=== PATIENT | male | born 1990 | race Caucasian/White ===

== ENCOUNTER 2025-06-04 17:36 | Emergency (ER) | payer OTHER ==
[~2025-06-04] VITALS: Ht 185.4 cm; Wt 62.9 kg
[2025-06-04 19:22] VITALS: TEMP 97.2
[2025-06-04] MEDS ORDERED: NO HOME MEDS (19:27)
[2025-06-04 19:47] LABS: MEAN PLATELET VOLUME 6.7 FL (7.4-10.4); RED CELL DISTRIBUTION WIDTH 13.5 % (11.5-14.5)
[2025-06-04 20:00] LABS: CREATININE 0.76 MG/DL (0.60-1.10); TOTAL CARBON DIOXIDE 34.0 MMOL/L (24-32); eCRCL 122 ML/MIN; eGFR > 90 ML/MIN
[2025-06-04 20:26] LABS: URINE AMPHETAMINE SCREEN NEGATIVE (Neg); URINE BARBITUATE SCREEN NEGATIVE (Neg); URINE BENZODIAZEPINES SCREEN NEGATIVE (Neg); URINE CANNABINOID SCREEN NEGATIVE (Neg); URINE COCAINE SCREEN NEGATIVE (Neg); URINE METHADONE SCREEN NEGATIVE (Neg); URINE OPIATE SCREEN NEGATIVE (Neg); URINE PHENCYCLIDINE SCREEN NEGATIVE (Neg)
[2025-06-04] MEDS ORDERED: HYDR-3686 PO (20:44)
--- NOTE | 2025-06-04 20:45 | Physician Documentation ---
History of Present Illness ~ Chief Complaint: Dizziness Stated Complaint: MED REACTION Time Seen by MD: 18:34 Mode of Arrival: POV HPI 35-year-old male [facility]. He has been taking paroxetine for greater than month and a half and drinking a pt of alcohol a day. Reports a lot of anxiety symptoms that he feels are related to paroxetine. [facility] who [facility] been [facility]ing dose of the SSRI. Patient continues to drink alcohol. Brought in the emergency department by mom. Also reports he has been using create him. He is alert and oriented. He has had some unintentional weight loss. Has had prior episodes of excessive drinking yet without withdrawal. Otherwise grossly neurologically intact without focal neuro defici ts. Medication Reconciliation Allergies: Coded Allergies: No Known Allergies (Unverified , 06/04/25) Scheduled Hydroxyzine Hcl* (Atarax*), 1 TAB PO Q8H Miscellaneous Medications Home Med List (No Home Medications), (Reported) Review of Systems All Other Systems at this time: Reviewed and Negative Neurological: Reports: dizziness Psychiatric: Reports: depression, anxiety, sleeplessness; Denies: suicidal Physical Exam Vital Signs: RN Vital Signs have been reviewed: Yes, Temperature: 97.2, Source: Oral, Heart Rate: 114, Respiratory Rate: 16, BP: 156/111, Pulse Oximetry: 99, Weight: 62.900 Oxygen Flow Rate: 0 General Appearance: alert, WD/WN, mild distress, other (Anxious) Head: normal Pupils/EOM/Fundus: PERRLA Respiratory: lungs clear, normal breath sounds Chest: no accessory muscle use Cardiovascular: normal peripheral pulses Skin: warm/dry Orientation / Memory / CN: oriented x3, information technology intern II-XII deficit Motor / Sensory: no motor deficit, no sensory deficit Cerebellar Function: normal Psych: appropriate, anxious Progress Results/Orders Results/Orders Completed Orders - YAYO DSOUZA Drug Screen, Urine (06/04/25 19:22) CMP (06/04/25 19:22) Cbc/Diff (06/04/25 19:22) Hydroxyzine Tablet (Atarax Tablet) (06/04/25 19:25) Vital Signs 06/04/25 06/04/25 06/04/25 06/04/25 17:41 19:22 19:23 20:52 Temp 97.2 97.2 Pulse 110 114 105 Resp 16 18 16 16 B/P (MAP) 162/111 156/111 (126) 140/102 Pulse Ox 100 99 100 O2 Flow Rate 0 0 Laboratory Tests Test 06/04/25 19:38 06/04/25 20:02 White Blood Count 4.4 L Red Blood Count 5.01 Hemoglobin 16.3 Hematocrit 47.3 Mean Corpuscular Volume 94.5 Mean Corpuscular Hemoglobin 32.6 H Mean Corpuscular Hemoglobin Concent 34.5 Red Cell Distribution Width 13.5 Platelet Count 164 Mean Platelet Volume 6.7 L Neutrophils (%) (Auto) 51.9 Lymphocytes (%) (Auto) 38.4 Monocytes (%) (Auto) 8.2 Eosinophils (%) (Auto) 0.5 Basophils (%) (Auto) 1.0 Neutrophils # (Auto) 2.3 Lymphocytes # (Auto) 1.7 Monocytes # (Auto) 0.4 Eosinophils # (Auto) 0.0 Basophils # (Auto) 0.0 CBC Comment Sodium Level 143 Potassium Level 4.7 Chloride Level 101 Carbon Dioxide Level 34.0 H Anion Gap 8 Blood Urea Nitrogen 8 Creatinine 0.76 Estimated GFR/1.73 m2 > 90 BUN/Creatinine Ratio 10.5 Glucose Level 108 H Calcium Level 8.1 L Total Bilirubin 0.3 Aspartate Amino Transf (AST/SGOT) 86 H Alanine Aminotransferase (ALT/SGPT) 60 Alkaline Phosphatase 89 Total Protein 7.8 Albumin 4.1 Globulin 3.7 Albumin/Globulin Ratio 1.1 Chemistry Comments Urine Opiates Screen Negative Urine Methadone Screen Negative Urine Fentanyl Screen Negative Urine Barbiturates Screen Negative Urine Phencyclidine Screen Negative Urine Amphetamines Screen Negative Urine Benzodiazepines Screen Negative Urine Cocaine Screen Negative Urine Cannabinoids Screen Negative Drug Screen Comment Medical Decision Making Additional information obtaine: family Findings Examination & history is consistent with paroxetine unpleasant side effects requiring a tapering dose that [facility]. Additionally patient has been counseled to better his nutrition, decrease his alcohol intake and begin hydroxyzine for anxiety while tapering off the SSRI. No clinical suspicion for withdrawal at this time. All labs reassuring for no NIGHAT or AKA. Urinalysis reassuring the normally U tox. Safely discharged with the emergency department. Responded well to the hydroxyzine. Hydroxyzine 25 mg Q eight p.r .n. for anxiety. Differential Dx:Considerations: Include: anemia, dehydration, other (Alcohol withdrawal) Departure Disposition: HOME / SELF CARE / HOMELESS Impression: Primary Impression: Dizziness Additional Impressions: Excessive alcohol intake Anxiety Poor nutrition Condition: Improved Discharge Instructions: Managing Anxiety, Adult Additional Instructions: Please continue tapering dose under the [facility] of the [facility]. Please take hydroxyzine 25 mg every 8 hours as needed for anxiety. You may take 50 mg at night for sleep. Please begin decreasing your alcohol intake. Referrals: NO PRIMARY CARE PROVIDER (PCP) Prescriptions Hydroxyzine Hcl* (Atarax*) 25 Mg Tablet 1 TAB PO Q8H for anxiety for 10 Days, #30 TAB Prov: YAYO DSOUZA PAC 06/04/25 Education Educated: Patient, Family Educated regarding: diagnosis, treatment, prognosis, need for follow up Signature Scribe Signature: . Attestation: . YAYO DSOUZA PAC Jun 04, 2025 20:45
[2025-06-04 20:52] VITALS: BP 140/102; PULSE 105; RESP 16; O2SAT 100
== END 2025-06-04 20:53 | disposition home or self-care (01) ==
LOC: ER 17:38
DX: R42 Dizziness and giddiness (principal); F41.9 Anxiety disorder, unspecified; F10.90 Alcohol use, unspecified, uncomplicated; Y90.9 Presence of alcohol in blood, level not specified; Z79.899 Other long term (current) drug therapy
CPT/HCPCS: 36415; 80053; 80305; 85025; 99283; Q0177